=== PATIENT | male | born 1955 | race Caucasian/White ===

== ENCOUNTER 2017-08-23 10:55 | Inpatient (IN) | payer MEDICAID ==
[~2017-08-23] VITALS: Ht 167.6 cm; Wt 74.8 kg
[~2017-08-23 10:55] MED LIST: LISI-661 PO; RISP1 PO
[2017-08-23] MEDS ORDERED: DiphenhydrAMINE HCL 50 MG/ML VIAL IM ONE (11:15)
[2017-08-23] MEDS ORDERED: LORazepam 2 MG/ML VIAL IM ONE (11:15)
[2017-08-23] MEDS ORDERED: HALOPERIDOL LACTATE 5 MG/ML VIAL IM ONE (11:15)
[2017-08-23 11:32] LABS: BASOPHILS # (AUTO) 0.02 K/uL (0.00-0.20); BASOPHILS % (AUTO) 0.3 % (0.0-2.0); EOSINOPHILS # (AUTO) 0.24 K/uL (0.00-0.70); HEMATOCRIT 39.4 % (41-53); HEMOGLOBIN 13.5 g/dL (13.5-17.5); LYMPHOCYTES # (AUTO) 2.7 K/uL (1.0-4.8); LYMPHOCYTES % (AUTO) 28.1 % (22.0-44.0); MEAN CORPUSCULAR HEMOGLOBIN 29.1 pg (26.0-34.0); MEAN CORPUSCULAR HGB CONC 34.4 G/dL (31.0-37.0); MEAN CORPUSCULAR VOLUME 85 fL (80-100); MONOCYTES # (AUTO) 0.9 K/uL (0.1-1.0); NEUTROPHILS # (AUTO) 5.9 K/uL (1.8-7.7); NEUTROPHILS % (AUTO) 60.1 % (40.0-70.0); PLATELET COUNT (AUTO) 303 K/uL (150-450); RED BLOOD CELL COUNT(AUTO) 4.65 MIL/uL (4.50-5.90); RED CELL DISTRIBUTION WIDTH 14.1 % (11.5-14.5); WHITE BLOOD COUNT (AUTO) 9.7 K/uL (4.5-11.0)
[2017-08-23 11:41] LABS: ANION GAP 8 mmol/L (8-16); CALCIUM, TOTAL 8.6 mg/dL (8.8-10.5); CARBON DIOXIDE 29 mmol/L (22-29); CHLORIDE 103 mmol/L (98-107); CREATININE 0.85 mg/dL (0.60-1.30); GLOMERULAR FILTR. RATE CALC > 60 mL/min (>60); POTASSIUM 3.7 mmol/L (3.5-5.1); SODIUM SERUM 140 mmol/L (136-145); UREA NITROGEN, BLOOD 21 mg/dL (7-18)
[2017-08-23 11:47] LABS: ALANINE AMINOTRANSFERASE 30 U/L (12-78); ALBUMIN 3.6 g/dL (3.4-5.0); ASPARTATE AMINOTRANSFERASE 32 U/L (15-37); BILIRUBIN,TOTAL 0.8 mg/dL (0.1-1.0); TOTAL PROTEIN, SERUM 6.9 g/dL (6.4-8.2)
[2017-08-23] MEDS ORDERED: ACETAMINOPHEN 325 MG TABLET PO PRN (13:00)
[2017-08-23] MEDS ORDERED: MAGNESIUM HYDROXIDE SUSPENSION 30 ML UDCUP PO PRN (13:00)
[2017-08-23] MEDS ORDERED: ZOLPIDEM TARTRATE 10 MG TABLET PO PRN (13:00)
[2017-08-23] MEDS ORDERED: MAG HYDROX/AL HYDROX/SIMETH ES 30 ML SUSPENSION UDCUP PO PRN (13:00)
[2017-08-23 17:54] VITALS: BP 145/101
[2017-08-23] MEDS ORDERED: INFLUENZA VIRUS VACCINE QVS 2017-18 (3YR+)/PF 60 MCG/0.5 ML SYRINGE IM ONE (18:00)
[2017-08-23] MEDS ORDERED: PNEUMOCOCCAL VACCINE POLYVALENT 0.5 ML VIAL [PPSV23] IM ONE (18:00)
[2017-08-23] MEDS: LISINOPRIL 10 MG TABLET PO SCH (18:24)
[2017-08-23 19:24] VITALS: BP 142/78
[2017-08-24 07:09] VITALS: BP 138/88
[2017-08-24 08:10] VITALS: BP 128/70
[2017-08-24 08:58] LABS: CHOL/HDL RATIO 3.6 (4.2-7.3)
[2017-08-24] MEDS: LISINOPRIL 10 MG TABLET PO SCH ×2 (09:00→17:09)
[2017-08-24] MEDS: ARIPiprazole 10 MG TABLET PO SCH (12:45)
[2017-08-24 16:36] VITALS: BP 123/72
[2017-08-24] MEDS: LORazepam 2 MG TABLET PO PRN (17:09)
[2017-08-24] MEDS: HALOPERIDOL 5 MG TABLET PO PRN (17:10)
[2017-08-25 06:36] VITALS: BP 118/76
[2017-08-25] MEDS: LORazepam 2 MG TABLET PO PRN ×2 (09:44→17:11)
[2017-08-25] MEDS: ARIPiprazole 10 MG TABLET PO SCH (09:44)
[2017-08-25] MEDS: LISINOPRIL 10 MG TABLET PO SCH ×2 (09:44→17:11)
[2017-08-25 10:57] VITALS: BP 140/70
[2017-08-25 16:00] VITALS: BP 142/84
[2017-08-25] MEDS: HALOPERIDOL 5 MG TABLET PO PRN (17:11)
[2017-08-25] MEDS: IBUPROFEN 600 MG TABLET PO PRN (18:09)
[2017-08-26 08:28] VITALS: BP 133/74
[2017-08-26] MEDS: LORazepam 2 MG TABLET PO PRN ×2 (09:12→16:41)
[2017-08-26] MEDS: ARIPiprazole 10 MG TABLET PO SCH (09:12)
[2017-08-26] MEDS: LISINOPRIL 10 MG TABLET PO SCH ×2 (09:12→16:41)
[2017-08-26 16:00] VITALS: BP 140/88
[2017-08-26] MEDS: IBUPROFEN 600 MG TABLET PO PRN (16:41)
[2017-08-26] MEDS: HALOPERIDOL 5 MG TABLET PO PRN (16:41)
[2017-08-27 06:41] VITALS: BP 140/88
[2017-08-27 08:29] VITALS: BP 132/76
[2017-08-27] MEDS: LISINOPRIL 10 MG TABLET PO SCH ×2 (09:38→16:23)
[2017-08-27] MEDS: ARIPiprazole 10 MG TABLET PO SCH (09:38)
[2017-08-27] MEDS: LORazepam 2 MG TABLET PO PRN ×2 (09:38→16:23)
[2017-08-27] MEDS ORDERED: ARIPiprazole 10 MG TABLET PO ONE (13:00)
[2017-08-27 16:23] VITALS: BP 138/86
[2017-08-27] MEDS: IBUPROFEN 600 MG TABLET PO PRN (16:23)
[2017-08-27] MEDS: HALOPERIDOL 5 MG TABLET PO PRN (16:23)
[2017-08-28 01:36] VITALS: BP 133/82
[2017-08-28 08:10] VITALS: BP 148/75
[2017-08-28] MEDS: LORazepam 2 MG TABLET PO PRN ×2 (09:44→17:24)
[2017-08-28] MEDS: LISINOPRIL 10 MG TABLET PO SCH ×2 (09:44→17:24)
[2017-08-28] MEDS: ARIPiprazole 10 MG TABLET PO SCH (09:45)
[2017-08-28 16:00] VITALS: BP 142/84
[2017-08-28] MEDS: HALOPERIDOL 5 MG TABLET PO PRN (17:24)
[2017-08-28] MEDS: IBUPROFEN 600 MG TABLET PO PRN (17:25)
[2017-08-29 03:17] VITALS: BP 137/84
[2017-08-29 08:16] VITALS: BP 138/80
[2017-08-29] MEDS: LISINOPRIL 10 MG TABLET PO SCH ×2 (08:45→16:25)
[2017-08-29] MEDS: ARIPiprazole 10 MG TABLET PO SCH (08:45)
[2017-08-29] MEDS: IBUPROFEN 600 MG TABLET PO PRN ×2 (08:49→16:26)
[2017-08-29 16:00] VITALS: BP 140/88
[2017-08-29] MEDS ORDERED: ARIPiprazole ER SUSPENSION 400 MG PRE-FILLED DUAL CHAMBER SYRINGE IM ONE (16:15)
[2017-08-29] MEDS: LORazepam 2 MG TABLET PO PRN (16:26)
[2017-08-29] MEDS: HALOPERIDOL 5 MG TABLET PO PRN (16:26)
[2017-08-30 06:35] VITALS: BP 131/77
[2017-08-30 08:27] VITALS: BP 136/82
[2017-08-30] MEDS: ARIPiprazole 15 MG TABLET PO SCH (08:43)
[2017-08-30] MEDS: HALOPERIDOL 5 MG TABLET PO PRN ×2 (08:43→17:10)
[2017-08-30] MEDS: LORazepam 2 MG TABLET PO PRN ×2 (08:43→17:10)
[2017-08-30] MEDS ORDERED: ARIPiprazole ER SUSPENSION 400 MG PRE-FILLED DUAL CHAMBER SYRINGE IM ONE (09:00)
[2017-08-30] MEDS: LISINOPRIL 10 MG TABLET PO SCH ×2 (09:11→17:10)
[2017-08-30 16:00] VITALS: BP 128/88
[2017-08-31 06:34] VITALS: BP 131/78
[2017-08-31 08:20] VITALS: BP 110/60
[2017-08-31] MEDS: ARIPiprazole 15 MG TABLET PO SCH (08:47)
[2017-08-31] MEDS: LISINOPRIL 10 MG TABLET PO SCH (08:47)
[2017-08-31] MEDS ORDERED: ARIP15TA2 PO (09:20)
[2017-12-17] MEDS ORDERED: LISI-661 PO (16:01)
== END 2017-08-31 13:30 | disposition home or self-care (01) | DRG 750 ==
LOC: EMS 10:57 → B3A 16:30
PROVIDERS: ADMIT Psychiatry & Neurology Psychiatry; ATTEND Psychiatry & Neurology Psychiatry
DX: F20.0 Paranoid schizophrenia (principal); Z91.19 Patient's noncompliance with other medical treatment and regimen; I10 Essential (primary) hypertension; K76.9 Liver disease, unspecified; G89.29 Other chronic pain; F12.90 Cannabis use, unspecified, uncomplicated; F10.10 Alcohol abuse, uncomplicated; F32.9 Major depressive disorder, single episode, unspecified; Z59.0 Homelessness; Z79.899 Other long term (current) drug therapy; Z85.528 Personal history of other malignant neoplasm of kidney
CPT/HCPCS: 90471; 96372; 99285; G0480; J0401; J1200; J1630; J2060

== ENCOUNTER 2019-07-04 17:00 | Inpatient (IN) | payer MEDICARE, MEDICAID ==
[~2019-07-04] VITALS: Ht 177.8 cm; Wt 78.9 kg
[~2019-07-04 17:00] MED LIST changes: +NALT50TA PO; +OLAN10TA22 PO; -RISP1 PO
[2019-07-04] MEDS ORDERED: HALOPERIDOL LACTATE 5 MG/ML VIAL IM ONE (22:15)
[2019-07-04] MEDS ORDERED: DiphenhydrAMINE HCL 50 MG/ML VIAL IM ONE (22:15)
[2019-07-04] MEDS ORDERED: LORazepam 2 MG/ML VIAL IM ONE (22:15)
[2019-07-04] MEDS ORDERED: ZOLPIDEM TARTRATE 10 MG TABLET PO PRN (23:15)
[2019-07-04 23:17] LABS: BASOPHILS % (AUTO) 0.3 % (0.0-2.0); EOSINOPHILS % (AUTO) 1.6 % (1.0-6.0); HEMOGLOBIN 13.7 g/dL (13.5-17.5); LYMPHOCYTES # (AUTO) 2.7 K/uL (1.0-4.8); LYMPHOCYTES % (AUTO) 30.6 % (22.0-44.0); MEAN CORPUSCULAR HEMOGLOBIN 28.4 pg (26.0-34.0); MEAN CORPUSCULAR HGB CONC 32.6 G/dL (31.0-37.0); MEAN CORPUSCULAR VOLUME 87 fL (80-100); MONOCYTES # (AUTO) 0.8 K/uL (0.1-1.0); MONOCYTES % (AUTO) 8.8 % (2.0-9.0); NEUTROPHILS # (AUTO) 5.2 K/uL (1.8-7.7); NEUTROPHILS % (AUTO) 58.7 % (40.0-70.0); PLATELET COUNT (AUTO) 289 K/uL (150-450); RED BLOOD CELL COUNT(AUTO) 4.82 MIL/uL (4.50-5.90); RED CELL DISTRIBUTION WIDTH 13.9 % (11.5-14.5)
[2019-07-04 23:29] LABS: ANION GAP 9 mmol/L (8-16); CARBON DIOXIDE 26 mmol/L (22-29); CHLORIDE 102 mmol/L (98-107); CREATININE 1.06 mg/dL (0.60-1.30); GLOMERULAR FILTR. RATE CALC > 60 mL/min (>60); GLUCOSE,RANDOM 93 mg/dL (70-110); POTASSIUM 3.5 mmol/L (3.5-5.1); SODIUM SERUM 137 mmol/L (136-145); UREA NITROGEN, BLOOD 19 mg/dL (7-18)
[2019-07-04 23:37] LABS: ALANINE AMINOTRANSFERASE 13 U/L (12-78); ALBUMIN 3.4 g/dL (3.4-5.0); ALKALINE PHOSPHATASE 71 U/L (46-116); ASPARTATE AMINOTRANSFERASE 21 U/L (15-37); BILIRUBIN,TOTAL 0.5 mg/dL (0.1-1.0); TOTAL PROTEIN, SERUM 6.5 g/dL (6.4-8.2)
[2019-07-05] MEDS ORDERED: PNEUMOCOCCAL VACCINE POLYVALENT 0.5 ML VIAL [PPSV23] IM ONE (06:00)
[2019-07-05 06:45] VITALS: BP 114/78
[2019-07-05] MEDS: OLANZapine 10 MG TABLET PO SCH ×2 (12:29→20:32)
[2019-07-05] MEDS: NALTREXONE HCL 50 MG TABLET PO SCH (12:29)
[2019-07-05 16:00] VITALS: BP 127/78
[2019-07-05] MEDS: LORazepam 2 MG TABLET PO PRN (20:32)
[2019-07-06 08:08] VITALS: BP 110/74
[2019-07-06] MEDS: LORazepam 2 MG TABLET PO PRN ×2 (08:55→16:19)
[2019-07-06] MEDS: NALTREXONE HCL 50 MG TABLET PO SCH (08:55)
[2019-07-06] MEDS: OLANZapine 10 MG TABLET PO SCH ×2 (08:55→21:02)
[2019-07-06 17:24] VITALS: BP 162/102
[2019-07-06 17:25] VITALS: BP 139/89
[2019-07-06] MEDS: LISINOPRIL 20 MG TABLET PO SCH (17:26)
[2019-07-07 04:30] VITALS: BP 141/82
[2019-07-07] MEDS: LISINOPRIL 20 MG TABLET PO SCH ×3 (09:00→16:33)
[2019-07-07] MEDS: OLANZapine 10 MG TABLET PO SCH ×3 (09:00→20:19)
[2019-07-07] MEDS: NALTREXONE HCL 50 MG TABLET PO SCH ×2 (09:00→09:01)
[2019-07-07 16:00] VITALS: BP 140/90
[2019-07-07] MEDS: LORazepam 2 MG TABLET PO PRN (16:34)
[2019-07-07] MEDS: HALOPERIDOL 5 MG TABLET PO PRN (16:34)
[2019-07-08] MEDS ORDERED: LOPERAMIDE HCL 2 MG CAPSULE PO PRN (07:15)
[2019-07-08 08:42] VITALS: BP 135/86
[2019-07-08] MEDS: LISINOPRIL 20 MG TABLET PO SCH ×2 (09:20→16:59)
[2019-07-08] MEDS: OLANZapine 10 MG TABLET PO SCH ×2 (09:20→20:23)
[2019-07-08] MEDS: NALTREXONE HCL 50 MG TABLET PO SCH (09:20)
[2019-07-08] MEDS: LORazepam 2 MG TABLET PO PRN ×2 (09:20→16:59)
[2019-07-08 16:00] VITALS: BP 142/77
[2019-07-09 05:06] VITALS: BP 138/81
[2019-07-09] MEDS: LORazepam 2 MG TABLET PO PRN ×2 (09:42→17:00)
[2019-07-09] MEDS: NALTREXONE HCL 50 MG TABLET PO SCH (09:43)
[2019-07-09] MEDS: LISINOPRIL 20 MG TABLET PO SCH ×2 (09:43→16:59)
[2019-07-09] MEDS: OLANZapine 10 MG TABLET PO SCH ×2 (09:43→20:34)
[2019-07-09 09:45] LABS: CHOL/HDL RATIO 4.6 (4.2-7.3); FREE T4 (FREE THYROXINE) 0.9 ng/dL (0.76-1.46); THYROID STIMULATING HORMONE 2.22 uIU/mL (0.36-3.74)
[2019-07-09 16:33] VITALS: BP 135/83
[2019-07-10 07:16] VITALS: BP 128/83
[2019-07-10 08:07] VITALS: BP 132/69
[2019-07-10] MEDS: NALTREXONE HCL 50 MG TABLET PO SCH (09:28)
[2019-07-10] MEDS: OLANZapine 10 MG TABLET PO SCH ×2 (09:28→20:54)
[2019-07-10] MEDS: LORazepam 2 MG TABLET PO PRN ×2 (09:28→17:20)
[2019-07-10] MEDS: LISINOPRIL 20 MG TABLET PO SCH ×2 (09:28→17:20)
[2019-07-10 16:00] VITALS: BP 113/66
[2019-07-10] MEDS: HALOPERIDOL 5 MG TABLET PO PRN (17:20)
[2019-07-10 19:42] VITALS: BP 113/66
[2019-07-11] MEDS: LORazepam 2 MG TABLET PO PRN ×2 (03:19→16:12)
[2019-07-11] MEDS: HALOPERIDOL 5 MG TABLET PO PRN ×2 (03:19→16:12)
[2019-07-11 03:42] VITALS: BP 136/89
[2019-07-11] MEDS: OLANZapine 10 MG TABLET PO SCH ×2 (09:00→20:39)
[2019-07-11] MEDS: LISINOPRIL 20 MG TABLET PO SCH ×2 (09:00→17:03)
[2019-07-11] MEDS: NALTREXONE HCL 50 MG TABLET PO SCH (09:00)
[2019-07-11 16:00] VITALS: BP 141/79
[2019-07-12 00:15] VITALS: BP 119/75
[2019-07-12] MEDS: NALTREXONE HCL 50 MG TABLET PO SCH (09:29)
[2019-07-12] MEDS: OLANZapine 10 MG TABLET PO SCH ×2 (09:29→20:49)
[2019-07-12] MEDS: LORazepam 2 MG TABLET PO PRN ×2 (09:30→20:49)
[2019-07-12] MEDS: LISINOPRIL 20 MG TABLET PO SCH ×2 (09:30→16:55)
[2019-07-12 16:40] VITALS: BP 139/62
[2019-07-13 06:24] VITALS: BP 134/70
[2019-07-13] MEDS: OLANZapine 10 MG TABLET PO SCH ×2 (10:08→20:44)
[2019-07-13] MEDS: NALTREXONE HCL 50 MG TABLET PO SCH (10:08)
[2019-07-13] MEDS: LISINOPRIL 20 MG TABLET PO SCH ×2 (10:08→16:28)
[2019-07-13] MEDS: LORazepam 2 MG TABLET PO PRN ×2 (10:08→16:29)
[2019-07-13 16:00] VITALS: BP 123/65
[2019-07-14 08:09] VITALS: BP 126/71
[2019-07-14] MEDS: OLANZapine 10 MG TABLET PO SCH ×2 (09:15→20:42)
[2019-07-14] MEDS: LISINOPRIL 20 MG TABLET PO SCH ×2 (09:15→16:32)
[2019-07-14] MEDS: NALTREXONE HCL 50 MG TABLET PO SCH (09:15)
[2019-07-14 16:00] VITALS: BP 143/78
[2019-07-14] MEDS: HALOPERIDOL 5 MG TABLET PO PRN (16:32)
[2019-07-14] MEDS: LORazepam 2 MG TABLET PO PRN ×2 (16:32→20:42)
[2019-07-15] MEDS: LISINOPRIL 20 MG TABLET PO SCH ×2 (09:49→16:26)
[2019-07-15] MEDS: OLANZapine 10 MG TABLET PO SCH ×2 (09:49→20:25)
[2019-07-15] MEDS: NALTREXONE HCL 50 MG TABLET PO SCH (09:50)
[2019-07-15] MEDS ORDERED: BISMUTH SUBSALICYLATE 262 MG CHEWABLE TABLET CHEW PRN (12:30)
[2019-07-15 16:00] VITALS: BP 136/87
[2019-07-15] MEDS: LORazepam 2 MG TABLET PO PRN (16:26)
[2019-07-16 08:27] VITALS: BP 128/80
[2019-07-16] MEDS: NALTREXONE HCL 50 MG TABLET PO SCH (09:05)
[2019-07-16] MEDS: LISINOPRIL 20 MG TABLET PO SCH ×2 (09:05→16:36)
[2019-07-16] MEDS: OLANZapine 10 MG TABLET PO SCH ×2 (09:05→20:18)
[2019-07-16 16:00] VITALS: BP 115/67
[2019-07-16] MEDS: LORazepam 2 MG TABLET PO PRN (20:18)
[2019-07-17] MEDS: LISINOPRIL 20 MG TABLET PO SCH ×2 (09:22→17:05)
[2019-07-17] MEDS: NALTREXONE HCL 50 MG TABLET PO SCH (09:22)
[2019-07-17] MEDS: OLANZapine 10 MG TABLET PO SCH ×2 (09:22→20:45)
[2019-07-17 16:50] VITALS: BP 119/68
[2019-07-18] MEDS: NALTREXONE HCL 50 MG TABLET PO SCH (09:09)
[2019-07-18] MEDS: OLANZapine 10 MG TABLET PO SCH ×2 (09:10→20:17)
[2019-07-18] MEDS: LISINOPRIL 20 MG TABLET PO SCH ×2 (09:10→16:24)
[2019-07-18] MEDS: LORazepam 2 MG TABLET PO PRN ×2 (09:14→16:25)
[2019-07-19 08:12] VITALS: BP 128/77
[2019-07-19] MEDS: OLANZapine 10 MG TABLET PO SCH ×2 (08:59→20:34)
[2019-07-19] MEDS: NALTREXONE HCL 50 MG TABLET PO SCH (09:00)
[2019-07-19] MEDS: LISINOPRIL 20 MG TABLET PO SCH ×2 (09:01→16:29)
[2019-07-19 16:37] VITALS: BP 125/67
[2019-07-19] MEDS: LORazepam 2 MG TABLET PO PRN (20:34)
[2019-07-20 08:32] VITALS: BP 133/74
[2019-07-20] MEDS: NALTREXONE HCL 50 MG TABLET PO SCH (09:01)
[2019-07-20] MEDS: LISINOPRIL 20 MG TABLET PO SCH ×2 (09:02→16:51)
[2019-07-20] MEDS: OLANZapine 10 MG TABLET PO SCH ×2 (09:02→21:26)
[2019-07-20 16:00] VITALS: BP 115/66
[2019-07-20] MEDS: LORazepam 2 MG TABLET PO PRN (16:51)
[2019-07-21] MEDS: OLANZapine 10 MG TABLET PO SCH ×2 (10:16→20:15)
[2019-07-21] MEDS: LISINOPRIL 20 MG TABLET PO SCH ×2 (10:16→16:37)
[2019-07-21] MEDS: NALTREXONE HCL 50 MG TABLET PO SCH (10:16)
[2019-07-21 16:00] VITALS: BP 116/67
[2019-07-21] MEDS: LORazepam 2 MG TABLET PO PRN (16:37)
[2019-07-22] MEDS: NALTREXONE HCL 50 MG TABLET PO SCH (08:49)
[2019-07-22] MEDS: OLANZapine 10 MG TABLET PO SCH ×2 (08:49→20:48)
[2019-07-22] MEDS: LISINOPRIL 20 MG TABLET PO SCH ×2 (08:50→16:55)
[2019-07-22 16:00] VITALS: BP 141/84
[2019-07-22] MEDS: LORazepam 2 MG TABLET PO PRN (16:55)
[2019-07-23 02:42] VITALS: BP 129/81
[2019-07-23] MEDS: OLANZapine 10 MG TABLET PO SCH ×2 (09:19→20:48)
[2019-07-23] MEDS: LISINOPRIL 20 MG TABLET PO SCH ×2 (09:19→16:48)
[2019-07-23] MEDS: NALTREXONE HCL 50 MG TABLET PO SCH (09:19)
[2019-07-23 16:22] VITALS: BP 132/72
[2019-07-24] MEDS: OLANZapine 10 MG TABLET PO SCH ×2 (09:35→20:50)
[2019-07-24] MEDS: PANTOPRAZOLE SODIUM 40 MG DR TABLET PO SCH (09:35)
[2019-07-24] MEDS: LISINOPRIL 20 MG TABLET PO SCH ×2 (09:35→17:02)
[2019-07-24] MEDS: NALTREXONE HCL 50 MG TABLET PO SCH (09:35)
[2019-07-24 16:00] VITALS: BP 114/61
[2019-07-25] MEDS: LISINOPRIL 20 MG TABLET PO SCH ×2 (08:51→16:12)
[2019-07-25] MEDS: OLANZapine 10 MG TABLET PO SCH ×2 (08:51→20:23)
[2019-07-25] MEDS: PANTOPRAZOLE SODIUM 40 MG DR TABLET PO SCH (08:51)
[2019-07-25] MEDS: NALTREXONE HCL 50 MG TABLET PO SCH (08:51)
[2019-07-25 16:00] VITALS: BP 119/67
[2019-07-26 08:51] VITALS: BP 134/83
[2019-07-26] MEDS: PANTOPRAZOLE SODIUM 40 MG DR TABLET PO SCH (09:07)
[2019-07-26] MEDS: NALTREXONE HCL 50 MG TABLET PO SCH (09:07)
[2019-07-26] MEDS: LISINOPRIL 20 MG TABLET PO SCH ×2 (09:07→16:02)
[2019-07-26] MEDS: OLANZapine 10 MG TABLET PO SCH ×2 (09:07→20:19)
[2019-07-26 16:00] VITALS: BP 113/66
[2019-07-27] MEDS: LISINOPRIL 20 MG TABLET PO SCH ×2 (09:00→16:07)
[2019-07-27] MEDS: OLANZapine 10 MG TABLET PO SCH ×2 (09:00→20:14)
[2019-07-27] MEDS: NALTREXONE HCL 50 MG TABLET PO SCH (09:00)
[2019-07-27] MEDS: PANTOPRAZOLE SODIUM 40 MG DR TABLET PO SCH (09:00)
[2019-07-27 16:04] VITALS: BP 116/62
[2019-07-27] MEDS: LORazepam 2 MG TABLET PO PRN (16:07)
[2019-07-28 06:05] VITALS: BP 112/64
[2019-07-28] MEDS: NALTREXONE HCL 50 MG TABLET PO SCH (09:34)
[2019-07-28] MEDS: OLANZapine 10 MG TABLET PO SCH ×2 (09:34→20:53)
[2019-07-28] MEDS: PANTOPRAZOLE SODIUM 40 MG DR TABLET PO SCH (09:34)
[2019-07-28] MEDS: LISINOPRIL 20 MG TABLET PO SCH ×2 (09:34→17:00)
[2019-07-28 16:00] VITALS: BP 133/71
[2019-07-28] MEDS: LORazepam 2 MG TABLET PO PRN (17:00)
[2019-07-29 01:34] VITALS: BP 125/99
[2019-07-29 08:02] VITALS: BP 139/78
[2019-07-29] MEDS: PANTOPRAZOLE SODIUM 40 MG DR TABLET PO SCH (08:16)
[2019-07-29] MEDS: OLANZapine 10 MG TABLET PO SCH ×2 (08:16→20:03)
[2019-07-29] MEDS: NALTREXONE HCL 50 MG TABLET PO SCH (08:16)
[2019-07-29] MEDS: LISINOPRIL 20 MG TABLET PO SCH ×2 (08:16→16:05)
[2019-07-30 00:40] VITALS: BP 136/92
[2019-07-30] MEDS: LISINOPRIL 20 MG TABLET PO SCH ×2 (08:15→17:00)
[2019-07-30] MEDS: NALTREXONE HCL 50 MG TABLET PO SCH (08:15)
[2019-07-30] MEDS: PANTOPRAZOLE SODIUM 40 MG DR TABLET PO SCH (08:15)
[2019-07-30] MEDS: OLANZapine 10 MG TABLET PO SCH ×2 (08:15→20:44)
[2019-07-30 16:00] VITALS: BP 116/88
[2019-07-31 00:10] VITALS: BP 118/82
[2019-07-31 08:05] VITALS: BP 130/66
[2019-07-31] MEDS: LISINOPRIL 20 MG TABLET PO SCH ×2 (08:10→16:33)
[2019-07-31] MEDS: OLANZapine 10 MG TABLET PO SCH ×2 (08:10→20:37)
[2019-07-31] MEDS: PANTOPRAZOLE SODIUM 40 MG DR TABLET PO SCH (08:10)
[2019-07-31] MEDS: NALTREXONE HCL 50 MG TABLET PO SCH (08:12)
[2019-07-31] MEDS ORDERED: DiphenhydrAMINE HCL 50 MG/ML VIAL IM ONE (10:15)
[2019-07-31 16:01] VITALS: BP 136/89
[2019-07-31] MEDS: LORazepam 2 MG TABLET PO PRN (16:33)
[2019-08-01] MEDS: NALTREXONE HCL 50 MG TABLET PO SCH (08:05)
[2019-08-01] MEDS: PANTOPRAZOLE SODIUM 40 MG DR TABLET PO SCH (08:05)
[2019-08-01] MEDS: LISINOPRIL 20 MG TABLET PO SCH ×2 (08:05→16:23)
[2019-08-01] MEDS: OLANZapine 10 MG TABLET PO SCH ×2 (08:05→20:35)
[2019-08-01 16:08] VITALS: BP 132/86
[2019-08-01] MEDS: LORazepam 2 MG TABLET PO PRN (16:23)
[2019-08-01] MEDS: DiphenhydrAMINE HCL 25 MG CAPSULE PO PRN (16:23)
[2019-08-02 01:30] VITALS: BP 135/79
[2019-08-02] MEDS: DiphenhydrAMINE HCL 25 MG CAPSULE PO PRN (01:35)
[2019-08-02] MEDS: NALTREXONE HCL 50 MG TABLET PO SCH (08:24)
[2019-08-02] MEDS: LISINOPRIL 20 MG TABLET PO SCH ×2 (08:24→16:34)
[2019-08-02] MEDS: OLANZapine 10 MG TABLET PO SCH ×2 (08:24→20:06)
[2019-08-02] MEDS: PANTOPRAZOLE SODIUM 40 MG DR TABLET PO SCH (08:25)
[2019-08-02 08:44] VITALS: BP 133/69
[2019-08-02] MEDS: LORazepam 2 MG TABLET PO PRN ×2 (08:59→16:34)
[2019-08-02 16:03] VITALS: BP 128/82
[2019-08-03 00:29] VITALS: BP 132/88
[2019-08-03] MEDS: PANTOPRAZOLE SODIUM 40 MG DR TABLET PO SCH (08:44)
[2019-08-03] MEDS: OLANZapine 10 MG TABLET PO SCH ×2 (08:45→20:26)
[2019-08-03] MEDS: NALTREXONE HCL 50 MG TABLET PO SCH (08:45)
[2019-08-03] MEDS: LISINOPRIL 20 MG TABLET PO SCH ×2 (08:46→16:22)
[2019-08-03] MEDS: DiphenhydrAMINE HCL 25 MG CAPSULE PO PRN (09:46)
[2019-08-03] MEDS: LORazepam 2 MG TABLET PO PRN (16:22)
[2019-08-03 16:28] VITALS: BP 127/84
[2019-08-04] MEDS: LISINOPRIL 20 MG TABLET PO SCH (08:06)
[2019-08-04] MEDS: PANTOPRAZOLE SODIUM 40 MG DR TABLET PO SCH (08:06)
[2019-08-04] MEDS: OLANZapine 10 MG TABLET PO SCH (08:06)
[2019-08-04] MEDS: NALTREXONE HCL 50 MG TABLET PO SCH (08:07)
[2019-08-04] MEDS ORDERED: OLAN10TA3 PO (14:10)
== END 2019-08-04 12:56 | disposition home or self-care (01) | DRG 885 ==
LOC: EMS 17:01 → B3A 07-05 00:04
PROVIDERS: ADMIT Psychiatry & Neurology Child & Adolescent Psychiatry; ATTEND Psychiatry & Neurology Child & Adolescent Psychiatry
DX: F29 Unspecified psychosis not due to a substance or known physiological condition (principal); D72.829 Elevated white blood cell count, unspecified; E78.5 Hyperlipidemia, unspecified; I10 Essential (primary) hypertension; K21.9 Gastro-esophageal reflux disease without esophagitis; K29.70 Gastritis, unspecified, without bleeding; R45.850 Homicidal ideations; N28.9 Disorder of kidney and ureter, unspecified; Z59.0 Homelessness; Z85.528 Personal history of other malignant neoplasm of kidney; Z91.19 Patient's noncompliance with other medical treatment and regimen; Z79.899 Other long term (current) drug therapy
CPT/HCPCS: 84436; 84439; 84443; G0480; J1200; J1630; J2060